=== PATIENT | female | born 1970 | race Caucasian/White ===

== ENCOUNTER → 2017-03-10 | Outpatient (CLI) | payer BC ==
[~2017-03-10] MED LIST: ADVIL200 MG PO; LINZESS145 MCG PO; LOW-OGESTREL-21 EACH PO; MAXALT10 MG PO
== END | disposition disaster alternative care site (69) ==
LOC: GBCOE 15:52
DX: Z12.31 Encounter for screening mammogram for malignant neoplasm of breast (principal); N64.89 Other specified disorders of breast; R92.1 Mammographic calcification found on diagnostic imaging of breast
CPT/HCPCS: G0202

== ENCOUNTER → 2017-03-17 | Outpatient (CLI) | payer BC | END | disposition disaster alternative care site (69) | LOC: GBCOE 14:43 | DX: R92.8 Other abnormal and inconclusive findings on diagnostic imaging of breast (principal); N63 Unspecified lump in breast; N60.01 Solitary cyst of right breast | CPT/HCPCS: G0206; G0279 ==

== ENCOUNTER → 2017-03-31 | Outpatient (CLI) | payer BC ==
--- NOTE | 2017-03-31 10:16 | NUR ---
[facility]. She is having a steriotactic breast biopsy today due to microcalcifications on mammogram. Introduced self and role of nurse navigator. Navigator brochure given. Permission recieved to do follow up call Monday.
--- NOTE | 2017-04-03 14:12 | NUR ---
Follow up call post breast biopsy. Patient doing well. Minimal discomfort. No redness, swelling or drainage. Did mention steri-strips came off early but she replaced with new. No questions.
== END | disposition disaster alternative care site (69) ==
LOC: GPOC 03-22 10:00 → GBCOE 09:27 → GPOC 10:00
PROC: 0HBT3ZX Excision of Right Breast, Percutaneous Approach, Diagnostic (ICD-10-PCS; principal; 2017-03-31)
DX: R92.0 Mammographic microcalcification found on diagnostic imaging of breast (principal)
CPT/HCPCS: J7050